=== PATIENT | female | born 1965 | race Caucasian/White ===

== ENCOUNTER → 2017-10-20 | Outpatient (CLI) | payer MEDICAID ==
[2015-05-11 16:02] VITALS: BP 129/81
--- NOTE | 2017-10-21 08:18 | RAD ---
HISTORY: Low back pain. Study: AP and lateral lumbar spine Comparison: None Findings: Five lumbar type vertebra present. There is minimal convex right upper lumbar scoliosis. Mild facet arthropathy is present at multiple levels with [id number] L5/S1. Minimal degenerative changes present in the sacroiliac joints. The lateral view demonstrates normal curvature and alignment. Th e vertebral bodies and intervertebral disc spaces are of normal height. Very minimal anterior spurri ng is noted at a couple of levels. IMPRESSION: 1. Lumbar spondylosis as described above. 2. No acute bony abnormalities are identified. Reported By:
== END | disposition home or self-care (01) | DRG 552 ==
LOC: RAD 14:58
PROVIDERS: ATTEND Nurse Practitioner Family
DX: M54.5 Low back pain (principal); M47.897 Other spondylosis, lumbosacral region
CPT/HCPCS: 72100